=== PATIENT | male | born 1995 | race African-American/Black ===

== ENCOUNTER 2018-08-15 04:45 | Emergency (ER) | payer MEDICAID, OTHER ==
[~2018-08-15] VITALS: Ht 188 cm; Wt 65.8 kg
[2018-08-15 04:47] VITALS: BP 134/77
== END 2018-08-15 04:57 | disposition left against medical advice (07) ==
LOC: ER 04:45
DX: S61.412A Laceration without foreign body of left hand, initial encounter (principal); Z53.21 Procedure and treatment not carried out due to patient leaving prior to being seen by health care provider; X58.XXXA Exposure to other specified factors, initial encounter; Y93.89 Activity, other specified; Y99.8 Other external cause status; Y92.89 Other specified places as the place of occurrence of the external cause

== ENCOUNTER 2019-01-20 00:09 | Emergency (ER) | payer SELFPAY ==
[~2019-01-20] VITALS: Ht 190.5 cm; Wt 66.7 kg
[2019-01-20 02:07] VITALS: BP 130/74
[2019-01-20] MEDS ORDERED: cefTRIAXone SOD 1,000 MG VL IM ONE (02:15)
== END 2019-01-20 02:21 | disposition home or self-care (01) ==
LOC: ER 00:15
DX: S51.011A Laceration without foreign body of right elbow, initial encounter (principal); W26.0XXA Contact with knife, initial encounter; Y93.89 Activity, other specified; Y99.8 Other external cause status; Y92.89 Other specified places as the place of occurrence of the external cause
CPT/HCPCS: 12002; 96372; 99283; J0696